=== PATIENT | female | born 1980 | race Two or more races ===

== ENCOUNTER 2019-02-03 08:22 | Outpatient (CLI) | payer OTHER | END 2019-02-03 08:30 | disposition home or self-care (01) | LOC: SONOGRAMA 08:22 | DX: E04.2 Nontoxic multinodular goiter (principal) ==

== ENCOUNTER 2019-07-30 07:07 | Outpatient (CLI) | payer OTHER | END 2019-07-30 07:21 | disposition home or self-care (01) | LOC: SONOGRAMA 07:07 | DX: E04.2 Nontoxic multinodular goiter (principal) ==